=== PATIENT | male | born 1980 | race Caucasian/White ===

== ENCOUNTER 2024-08-21 19:43 | Inpatient (IN) | payer SELFPAY ==
[2024-08-21 20:41] VITALS: BMI 24.0
[2024-08-21] MEDS ORDERED: Lorazepam 2 MG/ML VIAL IM PRN (20:58)
[2024-08-21] MEDS ORDERED: Acetaminophen 650 MG Suppository PR PRN (20:59)
[2024-08-21] MEDS ORDERED: Lactated Ringer's 1,000 ML IV SCH (21:00)
[2024-08-21] MEDS ORDERED: Electrolyte Replacement Protocol 1 EACH FS SCH (21:00)
[2024-08-21] MEDS: Thiamine HCl 200 MG/2 ML VIAL SLOW IVP SCH (21:12)
[2024-08-21] MEDS: Lorazepam 2 MG/ML VIAL SLOW IVP SCH (21:12)
[2024-08-21] MEDS: chlordiazePOXIDE HCl 25 MG CAP PO SCH (21:13)
[2024-08-21] MEDS: Promethazine HCl 12.5 MG in Sodium Chloride 0.9% 50 ML IVPB SCH (21:13)
[2024-08-21] MEDS: Pantoprazole 40 MG VIAL IVP SCH (21:21)
[2024-08-21 21:31] LABS: #Basophils 0.03 10x3/uL (0.0-0.2); #Eosinophils Less than 0.03 10x3/uL (0.0-0.7); %Basophils 0.2 % (0.0-1.0); %Lymphocytes 7.1 % (21.0-51.0); %Monocytes 8.4 % (0.0-10.0); %Neutrophils 83.8 % (42.0-75.0); Hematocrit 43.5 % (42.0-52.0); Hemoglobin 15.5 g/dL (14.0-18.0); Mean Corpuscular HGB CONC 35.6 g/dL (32.0-36.0); Mean Corpuscular Hemoglobin 35.3 pg (27.0-31.0); Mean Corpuscular Volume 99.1 fL (78.0-98.0); Mean Platelet Volume 9.1 fL (7.4-10.4); Platelet Count 248 10x3/uL (130-400); RBC Distribution Width 18.4 % (11.5-14.5); Red Blood Cell (RBC) Count 4.39 mill/uL (4.70-6.10)
[2024-08-21 21:44] LABS: INR-International Normal Ratio 1.1; Prothrombin Time 13.7 sec (12.0-14.7)
[2024-08-21] MEDS: Dexmedetomidine In 0.9 % NaCl 100 ML IVPB SCH (21:47)
[2024-08-21 21:53] LABS: ALT (SGPT) 43 U/L (8-55); AST (SGOT) 55 U/L (5-34); Albumin 3.4 g/dL (3.5-5.0); Alkaline Phosphatase 98 U/L (40-110); Anion Gap 18 mmol/L (10-20); BUN (Urea Nitrogen) 14 mg/dL (8.9-20.6); Bilirubin, Total 2.2 mg/dL (0.2-1.2); Calc. Creatinine Clearance 43 mL/min (70-130); Calcium 8.7 mg/dL (7.8-10.44); Carbon Dioxide 27 mmol/L (22-29); Chloride 94 mmol/L (98-107); Estimated GFR 35; Globulin 3.1 g/dL (2.4-3.5); Glucose 120 mg/dL (70-105); Phosphorus 1.7 mg/dL (2.3-4.7); Potassium 3.3 mmol/L (3.5-5.1); Protein, Total 6.5 g/dL (6.0-8.3); Sodium 136 mmol/L (136-145)
[2024-08-21] MEDS: D5 LR w/20 mEq KCL 1,000 ML IV SCH (22:21)
[2024-08-21] MEDS: Potassium Chloride 20 MEQ in Premix 1 BAG IVPB SCH (22:26)
[2024-08-21] MEDS: Potassium Phosphate 15 MMOL in Sodium Chloride 0.9% 250 ML 250 ML IVPB SCH (22:34)
[2024-08-21] MEDS: Pantoprazole DR 40 MG TAB PO SCH (22:56)
[2024-08-21] MEDS: Lorazepam 1 MG TAB PO SCH (22:56)
[2024-08-22] MEDS: Acetaminophen 325 MG TAB PO SCH (01:00)
[2024-08-22 04:32] LABS: #Basophils Less than 0.03 10x3/uL (0.0-0.2); #Eosinophils Less than 0.03 10x3/uL (0.0-0.7); %Basophils 0.1 % (0.0-1.0); %Lymphocytes 9.5 % (21.0-51.0); %Monocytes 5.5 % (0.0-10.0); %Neutrophils 84.3 % (42.0-75.0); Hematocrit 36.1 % (42.0-52.0); Hemoglobin 12.7 g/dL (14.0-18.0); Mean Corpuscular HGB CONC 35.2 g/dL (32.0-36.0); Mean Corpuscular Hemoglobin 35.3 pg (27.0-31.0); Mean Corpuscular Volume 100.3 fL (78.0-98.0); Mean Platelet Volume 9.5 fL (7.4-10.4); Platelet Count 183 10x3/uL (130-400); RBC Distribution Width 18.5 % (11.5-14.5)
[2024-08-22 05:10] LABS: ALT (SGPT) 31 U/L (8-55); AST (SGOT) 42 U/L (5-34); Albumin 2.7 g/dL (3.5-5.0); Alkaline Phosphatase 72 U/L (40-110); Anion Gap 11 mmol/L (10-20); BUN (Urea Nitrogen) 16 mg/dL (8.9-20.6); Bilirubin, Total 1.7 mg/dL (0.2-1.2); CK (CPK) 82 U/L (30-200); Calc. Creatinine Clearance 62 mL/min (70-130); Calcium 7.7 mg/dL (7.8-10.44); Carbon Dioxide 29 mmol/L (22-29); Chloride 99 mmol/L (98-107); Estimated GFR 54; Globulin 2.4 g/dL (2.4-3.5); Glucose 116 mg/dL (70-105); Magnesium 1.9 mg/dL (1.6-2.6); Phosphorus 3.6 mg/dL (2.3-4.7); Protein, Total 5.1 g/dL (6.0-8.3); Sodium 135 mmol/L (136-145)
[2024-08-22] MEDS: Ondansetron PF 4 MG/2 ML Vial IVP PRN (05:58)
[2024-08-22] MEDS: Lorazepam 1 MG TAB PO PRN (06:01)
[2024-08-22] MEDS: Lactated Ringer's 1,000 ML IV SCH (06:14)
[2024-08-22] MEDS: Multivitamin W/ Minerals 1 TAB PO SCH (08:43)
[2024-08-22] MEDS: Folic Acid 1 MG TAB PO SCH (08:43)
[2024-08-22] MEDS: Cyanocobalamin (Vitamin B-12) 1,000 MCG TAB PO SCH (08:43)
[2024-08-22] MEDS ORDERED: Non-Formulary Item 1 EACH (Mv-Min/Folic/K1/Lycopen/Lutein [Centrum Silver Men Tablet] 1 E PO SCH (09:00)
[2024-08-22] MEDS ORDERED: Multivit, Therapeutic 1 TAB PO SCH (09:00)
[2024-08-22] MEDS ORDERED: Pantoprazole 40 MG VIAL IVP SCH (09:00)
[2024-08-23 04:48] LABS: ALT (SGPT) 33 U/L (8-55); AST (SGOT) 49 U/L (5-34); Albumin 2.7 g/dL (3.5-5.0); Alkaline Phosphatase 84 U/L (40-110); Anion Gap 12 mmol/L (10-20); BUN (Urea Nitrogen) 14 mg/dL (8.9-20.6); Bilirubin, Total 1.3 mg/dL (0.2-1.2); Calc. Creatinine Clearance 120 mL/min (70-130); Calcium 8.5 mg/dL (7.8-10.44); Carbon Dioxide 23 mmol/L (22-29); Chloride 102 mmol/L (98-107); Estimated GFR 111; Globulin 2.5 g/dL (2.4-3.5); Glucose 98 mg/dL (70-105); Magnesium 1.8 mg/dL (1.6-2.6); Phosphorus 2.9 mg/dL (2.3-4.7); Potassium 3.6 mmol/L (3.5-5.1); Protein, Total 5.2 g/dL (6.0-8.3); Sodium 133 mmol/L (136-145)
[2024-08-23] MEDS: Benzocaine/Menthol 1 LOZ LOZ PO PRN (05:02)
[2024-08-23] MEDS: Lactated Ringer's 1,000 ML IV SCH (05:03)
[2024-08-23] MEDS: Lorazepam 1 MG TAB PO PRN ×2 (05:13→21:41)
[2024-08-23] MEDS: Pantoprazole 40 MG VIAL IVP SCH (13:29)
[2024-08-23] MEDS: Sucralfate 1 GM/10 ML UDCUP PO SCH (17:08)
[2024-08-23] MEDS: Nicotine 14 MG PATCH TOP SCH (18:02)
[2024-08-23] MEDS: diphenhydrAMINE 50 MG/ML VIAL IVP SCH (18:36)
[2024-08-23] MEDS ORDERED: Lorazepam 0.5 MG TAB PO SCH (21:00)
[2024-08-23] MEDS: Melatonin 3 MG TAB PO SCH (23:16)
[2024-08-24 04:24] LABS: %Basophils 0.5 % (0.0-1.0); %Eosinophils 1.1 % (0.0-10.0); %Lymphocytes 15.2 % (21.0-51.0); %Monocytes 5.7 % (0.0-10.0); %Neutrophils 77.1 % (42.0-75.0); Hematocrit 40.8 % (42.0-52.0); Hemoglobin 13.4 g/dL (14.0-18.0); Mean Corpuscular HGB CONC 32.8 g/dL (32.0-36.0); Mean Corpuscular Hemoglobin 35.9 pg (27.0-31.0); Mean Corpuscular Volume 109.4 fL (78.0-98.0); Mean Platelet Volume 9.7 fL (7.4-10.4); Platelet Count 154 10x3/uL (130-400); Red Blood Cell (RBC) Count 3.73 mill/uL (4.70-6.10)
[2024-08-24 04:25] LABS: #Basophils 0.04 10x3/uL (0.0-0.2)
[2024-08-24 04:55] LABS: ALT (SGPT) 33 U/L (8-55); AST (SGOT) 44 U/L (5-34); Albumin 2.5 g/dL (3.5-5.0); Alkaline Phosphatase 81 U/L (40-110); Anion Gap 10 mmol/L (10-20); BUN (Urea Nitrogen) 8 mg/dL (8.9-20.6); Bilirubin, Total 0.9 mg/dL (0.2-1.2); Calc. Creatinine Clearance 136 mL/min (70-130); Calcium 8.5 mg/dL (7.8-10.44); Carbon Dioxide 22 mmol/L (22-29); Chloride 106 mmol/L (98-107); Estimated GFR 114; Globulin 2.6 g/dL (2.4-3.5); Glucose 96 mg/dL (70-105); Potassium 3.7 mmol/L (3.5-5.1); Protein, Total 5.1 g/dL (6.0-8.3); Sodium 134 mmol/L (136-145)
[2024-08-24] MEDS: diphenhydrAMINE 25 MG CAP PO PRN (12:06)
[2024-08-24] MEDS: Thiamine 100 MG TAB PO SCH (20:33)
[2024-08-24] MEDS: chlordiazePOXIDE HCl 5 MG CAP PO SCH (20:34)
[2024-08-24] MEDS: Pantoprazole DR 40 MG TAB PO SCH (20:34)
[2024-08-24] MEDS: Ondansetron ODT 4 MG TAB PO PRN (20:39)
[2024-08-24] MEDS: Lorazepam 0.5 MG TAB PO PRN (20:39)
[2024-08-25] MEDS: hydrOXYzine 25 MG TAB PO SCH (02:03)
[2024-08-25 08:07] VITALS: BP 130/78; TEMP 98
[2024-08-27] MEDS ORDERED: chlordiazePOXIDE HCl 5 MG CAP PO SCH (21:00)
== END 2024-08-25 11:34 | disposition home or self-care (01) | DRG 897 ==
LOC: IMCU/EMU 20:14 → T4-A 08-24 23:10
PROVIDERS: ADMIT Internal Medicine; ATTEND Family Medicine
DX: F10.231 Alcohol dependence with withdrawal delirium (principal); N17.9 Acute kidney failure, unspecified; F10.221 Alcohol dependence with intoxication delirium; Z88.0 Allergy status to penicillin; Z88.6 Allergy status to analgesic agent; Z90.49 Acquired absence of other specified parts of digestive tract; E87.6 Hypokalemia; K76.89 Other specified diseases of liver; K76.0 Fatty (change of) liver, not elsewhere classified; Z71.41 Alcohol abuse counseling and surveillance of alcoholic
CPT/HCPCS: 36415; 76700; 80053; 82550; 83735; 84100; 85025; 85610; 85730; J1200; J2060; J2405; J2470; J2550; J3411; J3480; J7050; J7120; Q0162